=== PATIENT | male | born 1955 | race Caucasian/White ===

== ENCOUNTER → 2017-11-26 | Outpatient (CLI) | payer MEDICARE | LOC: M.RAD 14:09 | DX: M19.011 Primary osteoarthritis, right shoulder (principal); M19.042 Primary osteoarthritis, left hand; M19.041 Primary osteoarthritis, right hand; M25.711 Osteophyte, right shoulder; M17.11 Unilateral primary osteoarthritis, right knee; G89.29 Other chronic pain ==

== ENCOUNTER → 2018-09-19 | Outpatient (CLI) | payer MEDICARE | LOC: M.RAD 15:44 | DX: J15.8 Pneumonia due to other specified bacteria (principal) ==

== ENCOUNTER → 2019-05-10 | Outpatient (CLI) | payer MEDICARE | LOC: M.RAD 15:12 | DX: M25.862 Other specified joint disorders, left knee (principal); M25.861 Other specified joint disorders, right knee; M17.0 Bilateral primary osteoarthritis of knee ==